=== PATIENT | female | born 2000 ===

== ENCOUNTER → 2020-12-13 | Outpatient (CLI) | payer SELFPAY ==
[2020-12-15 06:10] LABS: CHLAMYDIA BY NAA Negative (Negative); GONOCOCCUS BY NAA Negative (Negative); TRICH VAG BY NAA Negative (Negative)
== END | disposition home or self-care (01) ==
LOC: LAB SHORT 13:28
PROVIDERS: Physician Assistant Medical
DX: R30.9 Painful micturition, unspecified (principal)
CPT/HCPCS: 87070; 87147; 87205; 87491; 87591; 87661